=== PATIENT | female | born 1970 ===

== ENCOUNTER 2018-07-20 01:20 | Emergency (ER) | payer SELFPAY ==
[2018-07-20 02:16] VITALS: BP 166/85
--- NOTE | 2018-07-20 03:25 | XRay Report ---
FINAL REPORT EXAM: XR SHOULDER 2+V RT HISTORY: right shoulder TECHNIQUE: Three views of the right shoulder were submitted. FINDINGS: There is no evidence of fracture or dislocation. The AC joint and glenohumeral joint appear intact. The soft tissues otherwise are unremarkable. IMPRESSION: No acute process identified.
--- NOTE | 2018-07-20 08:04 | Emergency Department Report ---
Upper Extremity - HPI Chief Complaint: Extremity Injury, Upper Stated Complaint: RT SHOULDER PAIN Time Seen by Provider: 07/20/18 08:10 Upper Extremity: Right Shoulder (pain and reports she injured her shoulder at work 2 weeks ago.) Occurred When: >5 Days (2 weeks) Mechanism: Other (lift an object) Severity: severe (10/10 and aching in) Symptoms: Yes Pain with Movement (right shoulder), Yes Limited Range of Movement (patient reports limited range of motion to right shoulder), Yes Swelling (posterior shoulder), No Deformity, No Numbness, No Weakness, No Bruising/Ecchymosis, No Laceration or Abrasion Other History: This is a 47-year-old female here reports that she does lifting at work and 2 weeks ago she thinks she lift a heavy object and she started having pain to her right shoulder with swelling to the back of her shoulder on the right side. Pain is 10/10 and achy worse with movement better with rest. Patient says she is taking her ibuprofen but it is not helping. Denies any fever or chills. Reports pain radiating down to her right arm at times. Denies any numbness or tingling. Pain is worse with movement better with rest. Denies any chest pain or shortness of breath. Denies any dizziness, nausea or vomiting in, neck pain or stiffness. ED Review of Systems ROS: Stated complaint: RT SHOULDER PAIN Other details as noted in HPI Constitutional: denies: chills, fever Eyes: denies: eye pain, eye discharge, vision change ENT: denies: ear pain, throat pain Respiratory: denies: cough, shortness of breath, SOB with exertion, SOB at rest , wheezing Cardiovascular: denies: chest pain, palpitations, edema, syncope Gastrointestinal: denies: abdominal pain, nausea, diarrhea Musculoskeletal: joint swelling, arthralgia. denies: back pain, myalgia Skin: denies: rash, lesions Neurological: denies: headache, weakness, numbness, paresthesias, abnormal gait , vertigo ED Past Medical Hx - Past Medical History Previous Medical History?: No - Surgical History Past Surgical History?: No - Family History Family history: hypertension - Social History Smoking Status: Never Smoker Substance Use Type: None - Medications Home Medications: Home Medications Medication Instructions Recorded Confirmed Last Taken Type Ibuprofen [Motrin 600 MG tab] 600 mg PO Q8H PRN #15 tablet 07/20/18 Unknown Rx predniSONE [Deltasone] 50 mg PO QDAY 3 Days #3 tab 07/20/18 Unknown Rx traMADol [Ultram 50 MG tab] 50 mg PO Q6HR PRN #20 tablet 07/20/18 Unknown Rx Upper Extremity Exam - Exam General: Vital signs noted. No distress. Alert and acting appropriately. This is a 47-year-old female well-nourished well-developed in no acute distress. Head and Torso: No HEENT Abnormality, No Neck Tenderness, No Chest/Lungs Abnormality, No Abdominal Tenderness, No Back Tenderness Shoulder Exam: Yes Shoulder Tenderness ([facility] joint tenderness .), Yes Normal Range of Motion in Shoulder (patient with full range of motion to her right shoulder but she reports pain with movement.), No Clavicle Tenderness, No Shoulder Deformity, No AC Joint Tenderness Arm Exam: No Arm/Humerus Tenderness, No Arm Deformity Elbow: Yes Normal Range of Motion in Elbow, No Elbow Tenderness, No Elbow Deformity Forearm: No Forearm Tenderness, No Forearm Deformity, No Pain with Pronation, No Pain with Supination Wrist: Yes Normal ROM in Wrist, No Wrist Tenderness, No Wrist Deformity, No Snuffbox Tenderness, No Pain with Axial Thumb Compression Hand: Yes Normal ROM in Digit(s), No Hand Tenderness, No Hand Deformity, No Digit Tenderness, No Digit(s) Deformity, No Tendon Dysfunction CMS Exam: Yes Normal Distal Pulses, Yes Normal Capillary Refill, Yes Normal Distal Sensation, No Broken Skin ED Course Vital Signs 07/20/18 02:13 Temperature 98.7 F Pulse Rate 75 Blood Pressure 166/85 O2 Sat by Pulse 99 Oximetry Respiration is 18 - Reevaluation(s) Reevaluation #1: 07/20/18 09:11 She received Decadron 10 mg IM in emergency room and Madelia 5/325 2 tablets by mouth for shoulder pain with positive relief. - Orthopedic Splinting/Casting Injury #1 Side: right Upper Extremity Injury Location: shoulder Upper Extremity Immobilizer: sling/shoulder immobilize ED Medical Decision Making - Radiology Data Radiology results: report reviewed X-ray two-view right shoulder dictated by radiologist and report reviewed by myself. See report below. Patient: AUGUSTUS PATEL MR#: [id number] : 1970 Acct:[id number] Age/Sex: 47 / F ADM Date: 07/20/18 Loc: ED Attending Dr: Ordering Physician: MEGA CABALLERO MD Date of Service: 07/20/18 Procedure(s): XR shoulder 2+V RT Accession Number(s): [id number] cc: MEGA CABALLERO MD Fluoro Time In Minutes: FINAL REPORT EXAM: XR SHOULDER 2+V RT HISTORY: right shoulder TECHNIQUE: Three views of the right shoulder were submitted. FINDINGS: There is no evidence of fracture or dislocation. The AC joint and glenohumeral joint appear intact. The soft tissues otherwise are unremarkable. IMPRESSION: No acute process identified. Transcribed By: RB Dictated By: ERIC CARDENAS MD Electronically Authenticated By: ERIC CARDENAS MD Signed Date/Time: 07/20/18323 DD/ 3 TD/TT: 07/20/18323 - Medical Decision Making This is a 47-year-old female here reports that she has shoulder injury from work 2 weeks ago where she was lifting heavy object. She is reporting pain to her right shoulder with radiation onto her right arm. Taken Motrin without any relief. I saw and examined patient and physical exam is normal except for right shoulder with pain upon active and passive range of motion. She has no joint deformity, crepitus or effusion. She had x-ray of right shoulder which shows no fracture or dislocation and no mention of soft tissue swelling. I discussed this with the patient along with diagnosis and treatment plan. She was given shoulder sling and asked to rest her right shoulder for 72 hours and she is to follow up with orthopedic doctor for possible MRI as this could be rotator cuff injury. She received Madelia 5/325 mg 2 tablets by mouth and Decadron 10 mg IM for relief of pain. Patient vital signs are stable she is afebrile and pains controlled. Discharge home with prescription for prednisone, Motrin and Ultram and to follow-up with orthopedic doctor in 3-5 days and she agrees. - Differential Diagnosis fracture versus dislocation, rotator cuff injury, musculoskeletal pain Critical care attestation.: If time is entered above; I have spent that time in minutes in the direct care of this critically ill patient, excluding procedure time. 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
[2018-07-20] MEDS ORDERED: MOTRIN PO ONE (08:32)
[2018-07-20] MEDS ORDERED: CLEOCIN PO ONE (08:32)
[2018-07-20] MEDS ORDERED: DECADRON IM STA (08:32)
[2018-07-20] MEDS ORDERED: NORCO 5/325 PO ONE (08:33)
[2018-07-20] MEDS ORDERED: CLEOCIN ONE (08:44)
== END 2018-07-20 09:30 | disposition home or self-care (01) ==
LOC: ED 01:20
DX: S49.91XA Unspecified injury of right shoulder and upper arm, initial encounter (principal); X50.0XXA Overexertion from strenuous movement or load, initial encounter; Y93.89 Activity, other specified; Y92.89 Other specified places as the place of occurrence of the external cause; Y99.8 Other external cause status
CPT/HCPCS: 73030; 96372; 99284; J1100